=== PATIENT | male | born 1975 | race Caucasian/White ===

== ENCOUNTER 2019-11-29 19:35 | Emergency (ER) | payer BC, SELFPAY ==
--- NOTE | ~2019-11-29 | XR_ITS ---
EXAMINATION: XR ankle RT min 3V, XR heel RT min 2V, XR foot RT min 3V EXAM DATE: 11/29/2019 20:09 INDICATION: Initial encounter following injury, with pain of the right ankle, heel, foot. TECHNIQUE: Right foot dorsoplantar, lateral and oblique projections obtained and reviewed. Right ank le frontal, lateral and oblique projections obtained and reviewed. Calcaneus frontal and lateral pro jections. FINDINGS: There is acute comminuted right calcaneus fracture with decrease in Boehler's angle. Closed , posttraumatic fractures extending into the subtalar joints. Right metatarsal bones unremarkable. T he right ankle mortise appears intact. IMPRESSION: Acute comminuted right calcaneal fractures. Reviewed, dictated and finalized at location G. IMPRESSION: Acute comminuted right calcaneal fractures. IMPRESSION: Acute comminuted right calcaneal fractures.
[2019-11-29 19:37] VITALS: BP 130/83; PULSE 84; RESP 20; TEMP 36.6; O2SAT 100
--- NOTE | 2019-11-29 19:44 | ED.GENADULT ---
HPI - General Adult General Chief complaint: Extremity Injury, Lower Stated complaint: r ankle pain Time Seen by Provider: 11/29/19 19:44 Source: patient and family Mode of arrival: ambulatory Limitations: no limitations History of Present Illness HPI narrative: Patient is a 44-year-old male who presents for evaluation of right foot pain. Patient was rebuilding a deck at his residence, when he fell off of a ladder from a height of 6 feet and landed onto his right foot. Patient reports immediate right, sharp foot pain in his heel that radiates into his ankle. No knee pain. No lower back pain. No loss of consciousness or head trauma. Patient reports some mild numbness in his toes, otherwise has been using crutches for the past hour. Related Data Allergies Allergy/AdvReac Type Severity Reaction Status Date / Time No Known Allergies Allergy Verified 11/29/19 19:41 Review of Systems Review of Systems: Narrative: CONSTITUTIONAL: Denies fever EYES: Denies visual changes ENT: Denies rhinorrhea, congestion, sore throat, or otalgia. CARDIOVASCULAR: Denies chest pain RESPIRATORY: Denies cough or dyspnea. GASTROINTESTINAL: Denies nausea, vomiting SKIN: Denies rash or itching. MUSCULOSKELETAL: Denies back pain, reports right ankle, right heel and foot pain NEUROLOGIC: Denies headache, reports tingling in right toes, denies ankle weakness PMFSH Past Medical History Medical History (Updated 11/29/19 @ 20:40 by Starla Whyte MD) No pertinent past medical history Surgical History Surgical History (Updated 11/29/19 @ 19:52 by Starla Whyte MD) History of hernia surgery Social History Social History (Updated 11/29/19 @ 19:53 by Starla Whyte MD) Smoking status: Never smoker Alcohol intake: current Alcohol use details: social Substance use: never Living arrangements: with family Gender identity (if verbalized by the patient): Male Exam Narrative: Exam Narrative: GENERAL: Awake, alert, conversant HEAD: Normocephalic, atraumatic. EYES: PERRLA and EOMI. ENT: Nares clear, no rhinorrhea or epistaxis. Mucous membranes moist. NECK: Supple. CHEST: No respiratory distress, breathing even and non labored HEART: Regular rate, sinus rhythm ABDOMEN:Non distended, non tender EXTREMITIES: Decreased range of motion in the right ankle. EHL/FHL right great toe intact. DP pulse 2+ on the right. Intact distal sensation medially and laterally. Intact dorsal sensation. Deformity of the right heel, edema of the medial lateral ankle. Decreased range of motion of the right ankle due to pain. Thorax: No cervical, thoracic, midline lumbar tenderness. No paraspinal tenderness. SKIN: Warm, dry, no rash. NEURO:No focal deficits. Alert and oriented x3 Course Vital Signs Vital signs: Vital Signs Temperature 36.6 C 11/29/19 19:37 Pulse Rate 84 11/29/19 19:37 Respiratory Rate 11/29/19 19:37 Blood Pressure 130/83 11/29/19 19:37 Pulse Oximetry 100 11/29/19 19:37 Temperature 36.6 C 11/29/19 19:37 Pulse Rate 84 11/29/19 19:37 Respiratory Rate 11/29/19 19:37 Blood Pressure 130/83 11/29/19 19:37 Pulse Oximetry 100 11/29/19 19:37 Procedures Orthopedic Splinting/Casting Injury #1: Splinting/Casting Date: 11/29/19 Splinting/Casting Time: 20:24 Side: right Lower Extremity Injury Location: foot Lower Extremity Immobilizer: posterior splint Splint: customized in ED OCL: short leg Pre-Procedure Neuro Vascular Exam: normal Post-Procedure Neuro Vascular Exam: normal Other Orthopedic Equipment: crutches Medical Decision Making MDM Narrative Medical decision making narrative: Patient presented to the emergency department for evaluation of fall from a deck with right foot pain and heel pain. At the time of initial assessment, ABCs are intact and vital signs are stable. Physical exam is notable for right heel deform
[2019-11-29 20:51] VITALS: BP 139/74; PULSE 81; RESP 19; TEMP 36.8; O2SAT 100
== END 2019-11-29 20:52 | disposition home or self-care (01) ==
PROVIDERS: Emergency Provider Emergency Medicine; PCP Family Medicine
DX: S92.011A Displaced fracture of body of right calcaneus, initial encounter for closed fracture (principal); W11.XXXA Fall on and from ladder, initial encounter
CPT/HCPCS: 29515; 73610; 73630; 73650; 99284

== ENCOUNTER → 2020-11-24 07:44 | Outpatient (CLI) | payer OTHER, SELFPAY ==
--- NOTE | ~2020-11-24 | MR_ITS ---
EXAMINATION: MR knee LT wo con DATE: 11/24/2020 08:21 INDICATION: Medial left knee joint pain TECHNIQUE: Magnetic resonance imaging (MRI) of the left knee was performed without intravenous contra st. Sequences included coronal PD-weighted FSE, coronal PD-weighted FS FSE, sagittal T2-weighted FSE , sagittal PD-weighted FS FSE and axial PD weighted fat saturated FSE. COMPARISON: None. FINDINGS: Medial compartment: Complex tear of the body and posterior horn of the medial meniscus which includes a longitudinal tear beginning with relatively vertical orientation at the body and transitioning to more horizontal orie ntation extending to the inferior articular surface at the posterior horn. There is a less well-defin ed secondary tear plane along the inner third of the posterior horn. Partial-thickness cartilage loss with relatively smooth chondral surface along the medial and posterior margins of the medial tibial plateau and along the anterior to central weightbearing medial femoral condyle. Focal deeper chondral ulceration with minimal underlying subarticular edema at the central weightbearing medial femoral co ndyle. Lateral compartment: Lateral meniscus is normal. Linear decreased signal suggesting fissuring at the central aspect of the lateral tibial plateau. Patellofemoral compartment: Deep chondral ulceration at the inferior aspect of the medial and lateral trochlea and intervening tr ochlear groove. There is mild underlying cortical irregularity and additional mild cystic change at t he inferior aspect of the medial trochlea. 4/near full-thickness chondral fissuring at the medial pat ellar facet. A severe partial thickness chondral fissuring involving less than 50% the cartilage thic kness at the lateral facet. Ligaments and tendons: Anterior and posterior cruciate ligaments are normal. The medial collateral ligament and fibular pilar ateral ligament complex are normal. The extensor mechanism is normal. The visualized medial and later al hamstring tendons as well as the iliotibial band are normal. Fluid: Physiologic amount of fluid in the joint space. No loose osteochondral bodies identified. Osseous/other: Bone alignment is normal. Low signal intensity bone islands at the medial and lateral femoral condyle s. No fracture or pathologic marrow replacing process. IMPRESSION: 1. Complex medial meniscal tear. 2. 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 Reviewed, dictated and finalized at location A. IMPRESSION: 1. Complex medial meniscal tear. 2. Mild medial and patellofemoral compartment predominant tricompartmental oste oarthritis.
== END ==
PROVIDERS: Visit Provider Orthopaedic Surgery
DX: M25.562 Pain in left knee (principal); S83.232A Complex tear of medial meniscus, current injury, left knee, initial encounter; M17.12 Unilateral primary osteoarthritis, left knee
CPT/HCPCS: 73721

== ENCOUNTER → 2021-05-19 14:36 | Outpatient (CLI) | payer OTHER, SELFPAY ==
--- NOTE | ~2021-05-19 | XR_ITS ---
EXAMINATION: XR lumbar spine min 4V DATE: 05/19/2021 15:04 INDICATION: Compression fracture of L1. TECHNIQUE: 5 views of lumbar spine standing including flexion and extension views were obtained. COMPARISON: CT lumbar spine 05/19/2021 FINDINGS: There is 5 degrees dextrocurvature of thoracolumbar spine. There is mild chronic anterior w edging of T11-L2 vertebral bodies. There is moderately decreased disc height at L2-L3 and mildly decr eased disc height at L3-L4. There is no abnormal motion with flexion or extension. There is multileve l mild facet joint osteoarthritis. IMPRESSION: 1. No acute fracture. 2. Moderate lumbar spondylosis. Reviewed, dictated and finalized at location A.
--- NOTE | ~2021-05-19 | CT_ITS ---
EXAMINATION: CT lumbar spine wo con DATE: 05/19/2021 15:11 INDICATION: Compression fracture of L1. TECHNIQUE: Computed tomography (CT) of the lumbar spine was performed without intravenous contrast. A utomated exposure control and iterative reconstruction technique were employed. The dose-length produ ct was 973.06 mGy-cm. COMPARISON: None FINDINGS: There is 4 degrees levocurvature of lumbar spine. There is mild chronic anterior wedging of T11-L2 vertebral bodies. There are Schmorl's nodes from T10-T11 through L3-L4. There is moderately d ecreased disc height at L2-L3 and mildly decreased disc height at L3-L4. There is a hemangioma in T12 vertebral body. The following disc levels are specifically discussed: L1-L2: The disc is bulging. There is mild bilateral facet joint osteoarthritis. There is no neural fo raminal stenosis. There is mild central canal stenosis. L2-L3: The disc is bulging. There is mild bilateral facet joint osteoarthritis. There is mild bilater al neural foraminal stenosis. There is mild central canal stenosis. L3-L4: The disc is bulging. There is mild bilateral facet joint osteoarthritis. There is mild bilater al neural foraminal stenosis. There is mild central canal stenosis. L4-L5: The disc is bulging. There is mild bilateral facet joint osteoarthritis. There is mild right a nd moderate left neural foraminal stenosis. There is mild central canal stenosis. L5-S1: The disc is bulging. There is moderate right and mild left facet joint osteoarthritis. There i s mild bilateral neural foraminal stenosis. There is mild central canal stenosis. IMPRESSION: 1. No acute fracture. 2. Moderate lumbar spondylosis. Reviewed, dictated and finalized at location A.
== END ==
DX: S32.010A Wedge compression fracture of first lumbar vertebra, initial encounter for closed fracture (principal); M47.817 Spondylosis without myelopathy or radiculopathy, lumbosacral region; M48.07 Spinal stenosis, lumbosacral region
CPT/HCPCS: 72110; 72131

== ENCOUNTER → 2021-09-26 08:06 | Outpatient (CLI) | payer OTHER, SELFPAY ==
--- NOTE | ~2021-09-26 | MR_ITS ---
EXAMINATION: MR lumbar spine wo [facility] EXAM DATE: 09/26/2021 08:39 INDICATION: Lumbar spondylosis chronic low back pain. TECHNIQUE: Multi-sequential, multiplanar MR images of the lumbar spine were obtained without contrast . Sagittal T1, T2, T2 fat saturation images. Axial T2 weighted images. Correlation is made to CT [facility] spine 05/19/2021. FINDINGS: There is mild to moderate disc disease from T11 through L4 with Schmorl's nodes at these en dplates. The vertebral bodies are aligned in the AP dimension. The conus medullaris terminates at the T12 there is a hemangioma within T12. level and has normal signal intensity and morphology. Paraspin al soft tissue is unremarkable. Level by level evaluation: T11-12: Disc does not extend beyond the endplate margin. Facet arthropathy: Mild. Neural foraminal stenosis: No stenosis. Central canal stenosis: No stenosis. T12-L1: Disc does not extend beyond the endplate margin. Facet arthropathy: Mild. Neural foraminal stenosis: No stenosis. Central canal stenosis: No stenosis. L1-L2: Disc does not extend beyond the endplate margin. Facet arthropathy: Mild. Neural foraminal stenosis: No stenosis. Central canal stenosis: No stenosis. L2-L3: There is a mild diffuse disc bulge. Facet arthropathy: Mild. Neural foraminal stenosis: No stenosis. Central canal stenosis: No stenosis. L3-L4: There is a mild diffuse disc bulge. Facet arthropathy: Mild. Neural foraminal stenosis: Mild bilateral. Central canal stenosis: No stenosis. L4-L5: There is a minimal diffuse disc bulge. Facet arthropathy: Mild to moderate. Neural foraminal stenosis: Mild to moderate left, mild right. Central canal stenosis: Minimal. L5-S1: Disc does not extend beyond the endplate margin. Facet arthropathy: Mild. Neural foraminal stenosis: Minimal left. Central canal stenosis: No stenosis. IMPRESSION: 1. Mild to moderate lumbar spondylosis. Reviewed, dictated and finalized at location A. [employer]
== END ==
PROVIDERS: PCP Family Medicine; Visit Provider Nurse Practitioner Adult Health
DX: M47.817 Spondylosis without myelopathy or radiculopathy, lumbosacral region (principal); M48.07 Spinal stenosis, lumbosacral region
CPT/HCPCS: 72148